=== PATIENT | male | born 1985 | race Caucasian/White ===

== ENCOUNTER 2023-03-08 09:16 | Emergency (ER) | payer OTHER ==
[~2023-03-08] VITALS: Ht 193 cm; Wt 103.1 kg
[2023-03-08] MEDS ORDERED: MUCI1LIQ3 PO (09:27)
[2023-03-08 11:12] LABS: RSV AMPLIFICATION NEGATIVE (NEGATIVE)
[2023-03-08] MEDS ORDERED: NS 1,000 ML IV ONE (12:00)
[2023-03-08] MEDS ORDERED: ISOVUE-370 76% 100ML VIAL As Ordered ONE (12:10)
[2023-03-08 13:14] LABS: HEMATOCRIT 49.6 % (42.0-52.0); HEMOGLOBIN 17.1 g/dl (13.5-17.5); MEAN CORPUSCULAR HEMOGLOBIN 32.7 pg (27.0-33.0); MEAN CORPUSCULAR HGB CONC 34.5 g/dl (32.0-36.5); MEAN CORPUSCULAR VOLUME 94.8 fl (80.0-96.0); PLATELET COUNT, AUTOMATED 255 10^3/uL (150-450); RED BLOOD COUNT 5.23 10^6/uL (4.30-6.10); WHITE BLOOD COUNT 14.5 10^3/uL (4.0-10.0)
[2023-03-08] MEDS ORDERED: VENTAER INH (14:03)
[2023-03-08] MEDS ORDERED: AMOX875T2 PO (14:03)
[2023-03-08] MEDS ORDERED: BENZ200C70 PO (14:03)
[2023-03-08 14:34] VITALS: BP 146/102; TEMP 97.7; O2SAT 96
[2023-03-08 14:40] LABS: ATYPICAL LYMPH 22 % (0-5); BASOPHILS 2 % (0-1); EOSINOPHILS 1 % (0-3); LYMPHOCYTES 13 % (16-44); MONOCYTES 8 % (0-5); NEUTROPHILS 54 % (28-66); PLATELET ESTIMATE NORMAL (NORMAL)
== END 2023-03-08 14:30 | disposition home or self-care (01) ==
LOC: M ED 09:16
DX: J02.9 Acute pharyngitis, unspecified (principal); Z20.828 Contact with and (suspected) exposure to other viral communicable diseases; K21.9 Gastro-esophageal reflux disease without esophagitis; K44.9 Diaphragmatic hernia without obstruction or gangrene; F17.210 Nicotine dependence, cigarettes, uncomplicated
CPT/HCPCS: 36415; 71275; 80047; 85025; 87631; 87880; 96360; 96361; 99284; Q9967